=== PATIENT | male | born 1985 | race African-American/Black ===

== ENCOUNTER 2020-08-12 14:19 | Emergency (ER) | payer OTHER, SELFPAY ==
[~2020-08-12] VITALS: Ht 177.8 cm; Wt 81.8 kg
[2020-08-12 14:45] VITALS: BP 96/50
--- NOTE | 2020-08-12 15:31 | REP ---
INDICATION: fall w/ reported LOC. COMPARISON: None. TECHNIQUE: Helical scanning is acquired. 5 mm axial images were reformatted. Coronal MPR images were generated. FINDINGS: Bone window settings demonstrate an intact bony calvarium. There is no evidence of skull fracture or incidental bony calvarial lesion. The visualized paranasal sinuses appear clear. No intraorbital abnormality is seen. On soft tissue window setting images; the lateral, third, and fourth ventricles are normal in size and position. Tobar-white differentiation pattern is normal above and below the tentorium. There are is no evidence of intracranial hemorrhage. No mass, edema, infarction, or midline shift is seen. No extra-axial fluid collection is appreciated. IMPRESSION: Negative noncontrast head CT. <Electronically signed by Abraham Jane > 08/12/20 1521
--- NOTE | 2020-08-12 15:32 | REP ---
INDICATION: fall w/ reported LOC. COMPARISON: None. TECHNIQUE: Helical scanning is acquired and overlapping 2 mm high resolution axial images were generated and reviewed at bone and soft tissue window settings. Coronal and sagittal multiplanar re-formations images are generated. FINDINGS: There is no evidence of cervical spine element fracture. No skull base fracture is seen. Cervical vertebral body heights are preserved. Alignment is normal. Facet joints are normally aligned bilaterally at each cervical level on multiplanar re-formations images. There is no evidence of intraspinal or paraspinal hematoma. No extra vertebral abnormality is seen. IMPRESSION: Negative CT study of the cervical spine without contrast. No fracture seen. <Electronically signed by Abraham Jane > 08/12/20 1524
[2020-08-12] MEDS ORDERED: ACETAMINOPHEN 325 MG TAB PO ONE (15:45)
[2020-08-12] MEDS ORDERED: NAPR-837 PO (16:28)
--- NOTE | 2020-08-12 16:33 | REP ---
INDICATION: trauma COMPARISON: None. TECHNIQUE: AP, lateral, bilateral oblique, and coned-down views of the lumbar spine. FINDINGS: Alignment and lordosis maintained. Vertebral bodies are intact. Disc spaces are relatively normal/age-appropriate. No acute fracture/compression injury or subluxation. No obvious spondylolysis or spondylolisthesis.. IMPRESSION: Normal Lumbosacral Spine series. <Electronically signed by Lenin Sherwood > 08/12/20 0809
--- NOTE | 2020-08-12 16:33 | REP ---
INDICATION: trauma COMPARISON: None. TECHNIQUE: AP and lateral views of the sacrum and coccyx. FINDINGS: No obvious acute fracture or dislocation. Surrounding soft tissues appear normal. IMPRESSION: No obvious acute fracture or dislocation. <Electronically signed by Lenin Sherwood > 08/12/20 2371
== END 2020-08-12 16:49 | disposition home or self-care (01) ==
LOC: M ED 14:19
DX: S09.90XA Unspecified injury of head, initial encounter (principal); S16.1XXA Strain of muscle, fascia and tendon at neck level, initial encounter; S39.012A Strain of muscle, fascia and tendon of lower back, initial encounter; W18.2XXA Fall in (into) shower or empty bathtub, initial encounter; Y92.012 Bathroom of single-family (private) house as the place of occurrence of the external cause; F17.210 Nicotine dependence, cigarettes, uncomplicated

== ENCOUNTER 2020-09-16 11:39 | Emergency (ER) | payer OTHER ==
[~2020-09-16] VITALS: Ht 177.8 cm; Wt 85.0 kg
[~2020-09-16 11:39] MED LIST: NAPR-837 PO
[2020-09-16] MEDS ORDERED: CYCL-707 PO (15:29)
[2020-09-16] MEDS ORDERED: NAPR-837 PO (15:29)
[2020-09-16 16:11] VITALS: BP 130/76
== END 2020-09-16 16:12 | disposition home or self-care (01) ==
LOC: M ED 11:39
DX: S09.90XA Unspecified injury of head, initial encounter (principal); S29.012A Strain of muscle and tendon of back wall of thorax, initial encounter; S16.1XXA Strain of muscle, fascia and tendon at neck level, initial encounter; W01.0XXA Fall on same level from slipping, tripping and stumbling without subsequent striking against object, initial encounter; Y92.481 Parking lot as the place of occurrence of the external cause

== ENCOUNTER 2020-09-18 09:25 | Emergency (ER) | payer OTHER, SELFPAY ==
[~2020-09-18] VITALS: Ht 177.8 cm; Wt 81.8 kg
[~2020-09-18 09:25] MED LIST changes: +CYCL-707 PO
[2020-09-18] MEDS ORDERED: ACETAMINOPHEN 325 MG TAB PO ONE (11:15)
--- NOTE | 2020-09-18 11:43 | REP ---
INDICATION: fall. COMPARISON: None. TECHNIQUE: Helical scanning is acquired and overlapping 2 mm high resolution axial images were generated and reviewed at bone and soft tissue window settings. Coronal and sagittal multiplanar re-formations images are generated. FINDINGS: There is no evidence of cervical spine element fracture. No skull base fracture is seen. Cervical vertebral body heights are preserved. Alignment is normal. Facet joints are normally aligned bilaterally at each cervical level on multiplanar re-formations images. There is no evidence of intraspinal or paraspinal hematoma. No extra vertebral abnormality is seen. IMPRESSION: Negative CT study of the cervical spine without contrast. No fracture seen. <Electronically signed by Abraham Jane > 09/18/20 1502
--- NOTE | 2020-09-18 11:45 | REP ---
INDICATION: fall. COMPARISON: None. TECHNIQUE: Helical scanning is acquired and 4 mm axial images are generated. Coronal and sagittal MPR images are provided. FINDINGS: Lumbar vertebral body heights are preserved. Alignment is normal. There is no evidence of spondylolysis or spondylolisthesis. No fracture or collapse is seen. No transverse process or spinous process fracture is appreciated. The visualized pelvic structures and sacrum are intact. No paravertebral hematoma is appreciated. The adjacent soft tissues are unremarkable. There is mild disc space narrowing at L4-5. Mild diffuse disc bulging is seen at L4-5. IMPRESSION: No traumatic abnormality noted. Mild narrowing of the L4-5 disc with diffuse disc bulging. Otherwise negative <Electronically signed by Abraham Jane > 09/18/20 1489
[2020-09-18] MEDS ORDERED: methocarbamoL 750 MG TAB PO ONE (12:35)
[2020-09-18] MEDS ORDERED: METH-1165 PO (12:39)
[2020-09-18 12:53] VITALS: BP 116/73
== END 2020-09-18 12:55 | disposition home or self-care (01) ==
LOC: M ED 09:25
DX: S13.4XXA Sprain of ligaments of cervical spine, initial encounter (principal); S39.012A Strain of muscle, fascia and tendon of lower back, initial encounter; W01.0XXA Fall on same level from slipping, tripping and stumbling without subsequent striking against object, initial encounter; Y92.481 Parking lot as the place of occurrence of the external cause

== ENCOUNTER 2020-10-03 17:20 | Emergency (ER) | payer OTHER, SELFPAY ==
[~2020-10-03] VITALS: Ht 177.8 cm; Wt 87.2 kg
[~2020-10-03 17:20] MED LIST changes: +METH-1165 PO
--- NOTE | 2020-10-03 18:31 | REP ---
INDICATION: trauma. COMPARISON: None. TECHNIQUE: Four views of the left hand are provided. FINDINGS: Four views of the left hand demonstrate normal bones, joints, and soft tissues. No fracture or subluxation is seen. No opaque foreign body noted. IMPRESSION: Negative left hand series. <Electronically signed by Abraham Jane > 10/03/20 2245
[2020-10-03] MEDS ORDERED: NAPR-837 PO (20:39)
[2020-10-03 20:59] VITALS: BP 137/87
== END 2020-10-03 21:01 | disposition home or self-care (01) ==
LOC: M ED 17:20
DX: S33.5XXA Sprain of ligaments of lumbar spine, initial encounter (principal); S60.222A Contusion of left hand, initial encounter; S70.02XA Contusion of left hip, initial encounter; W01.0XXA Fall on same level from slipping, tripping and stumbling without subsequent striking against object, initial encounter; Y92.89 Other specified places as the place of occurrence of the external cause; Y99.0 Civilian activity done for income or pay

== ENCOUNTER 2020-12-07 05:46 | Emergency (ER) | payer OTHER ==
[~2020-12-07] VITALS: Ht 177.8 cm; Wt 81.1 kg
[2020-12-07] MEDS ORDERED: ACETAMINOPHEN 325 MG TAB PO ONE (07:05)
[2020-12-07] MEDS ORDERED: KETOROLAC TROMETHAMINE 10 MG TAB PO ONE (09:20)
[2020-12-07 09:38] VITALS: BP 157/91
[2021-02-17] MEDS ORDERED: CYCL10TA20 (06:55)
== END 2020-12-07 09:36 | disposition home or self-care (01) ==
LOC: M ED 05:46
DX: S06.0X0A Concussion without loss of consciousness, initial encounter (principal); W18.2XXA Fall in (into) shower or empty bathtub, initial encounter; Y92.012 Bathroom of single-family (private) house as the place of occurrence of the external cause; R07.89 Other chest pain; M54.6 Pain in thoracic spine; F17.210 Nicotine dependence, cigarettes, uncomplicated

== ENCOUNTER 2020-12-19 14:12 | Emergency (ER) | payer OTHER, SELFPAY ==
[~2020-12-19] VITALS: Ht 177.8 cm; Wt 81.8 kg
--- NOTE | 2020-12-19 15:09 | REP ---
INDICATION: twisted ankle COMPARISON: None. TECHNIQUE: Four views right ankle. FINDINGS: There is no evidence of acute fracture, dislocation, or intrinsic bone disease.Ankle mortise is anatomic. Multiple tiny metallic densities are seen in the soft tissues of the inferolateral midfoot. IMPRESSION: No fracture or dislocation. <Electronically signed by Mamadou Tobar > 12/19/20 [id number]
[2020-12-19] MEDS ORDERED: ACETAMINOPHEN 325 MG TAB PO ONE (16:40)
[2020-12-19 16:57] VITALS: BP 140/78
== END 2020-12-19 17:04 | disposition home or self-care (01) ==
LOC: M ED 14:12
DX: S93.401A Sprain of unspecified ligament of right ankle, initial encounter (principal); X50.9XXA Other and unspecified overexertion or strenuous movements or postures, initial encounter; Y92.89 Other specified places as the place of occurrence of the external cause; Y99.0 Civilian activity done for income or pay

== ENCOUNTER 2021-01-02 09:31 | Emergency (ER) | payer OTHER, SELFPAY ==
[~2021-01-02] VITALS: Ht 177.8 cm; Wt 85.6 kg
[2021-01-02 09:31] VITALS: BP 149/72
[2021-01-02] MEDS ORDERED: IBUP200C25 PO (09:51)
[2021-01-02] MEDS ORDERED: KETOROLAC TROMETHAMINE 10 MG TAB PO ONE (12:20)
--- NOTE | 2021-01-02 12:44 | REP ---
INDICATION: hit by bus door. COMPARISON: 1421. TECHNIQUE: Axial CT lumbar spine with sagittal and coronal reconstruction images. FINDINGS: There is no acute compression fracture. There is no dislocation, with normal lumbar lordosis. There is slight disc space narrowing at L4-5 and L5-S1. There is minor diffuse disc bulging at both levels. IMPRESSION: No acute fracture or dislocation. <Electronically signed by Mamadou Tobar > 01/02/21 [id number]
--- NOTE | 2021-01-02 12:50 | REP ---
INDICATION: hit by bus door. COMPARISON: 12/07/2020. TECHNIQUE: CT brain performed in the axial plane. Coronal reconstruction images are performed. FINDINGS: The ventricles are normal in size and position.. There is no midline shift or mass effect. Tobar-white differentiation is well maintained. There is no acute intracranial hemorrhage or extra-axial fluid collection. Bone window examination is unremarkable. The visualized mastoid air cells and paranasal sinuses are clear. IMPRESSION: Negative noncontrast CT brain. <Electronically signed by Mamadou Tobar > 01/02/21 1249
--- NOTE | 2021-01-02 12:51 | REP ---
INDICATION: hit by bus door. COMPARISON: 09/18/2020. TECHNIQUE: CT cervical spine performed in the axial plane, with sagittal and coronal reconstruction images performed. FINDINGS: There is no acute compression fracture or malalignment. There is no prevertebral soft tissue swelling. Disc spaces are well preserved. There is normal cervical lordosis. There is no abnormal density in the spinal canal. IMPRESSION: No evidence of acute fracture or dislocation. <Electronically signed by Mamadou Tobar > 01/02/21 8239
--- NOTE | 2021-01-02 13:30 | REP ---
INDICATION: fell left shoulder COMPARISON: None. TECHNIQUE: Three views left shoulder. FINDINGS: There is no evidence of acute fracture, dislocation, or intrinsic bone disease. IMPRESSION: No fracture or dislocation. <Electronically signed by Mamadou Tobar > 01/02/21 [id number]
== END 2021-01-02 14:41 | disposition home or self-care (01) ==
LOC: M ED 09:31
DX: S09.90XA Unspecified injury of head, initial encounter (principal); M54.2 Cervicalgia; M25.512 Pain in left shoulder; M54.5 Low back pain; W17.89XA Other fall from one level to another, initial encounter; Y92.9 Unspecified place or not applicable; Y93.9 Activity, unspecified; Y99.9 Unspecified external cause status

== ENCOUNTER 2021-01-18 10:06 | Emergency (ER) | payer OTHER ==
[~2021-01-18] VITALS: Ht 177.8 cm; Wt 84.6 kg
[~2021-01-18 10:06] MED LIST changes: +IBUP200C25 PO
[2021-01-18 10:07] VITALS: BP 128/76
[2021-01-18] MEDS ORDERED: KETOROLAC TROMETHAMINE 10 MG TAB PO ONE (11:40)
--- NOTE | 2021-01-18 12:11 | REPVR ---
PROCEDURE INFORMATION: Exam: CT Head Without Contrast Exam date and time: 01/18/2021 11:49 AM Age: 35 years old Clinical indication: Injury or trauma; Fall; Blunt trauma (contusions or hematomas); Consciousness not specified; Additional info: Fell TECHNIQUE: Imaging protocol: Computed tomography of the head without contrast. Radiation optimization: All CT scans at this facility use at least one of these dose optimization techniques: automated exposure control; mA and/or kV adjustment per patient size (includes targeted exams where dose is matched to clinical indication); or iterative reconstruction. COMPARISON: CT Head without contrast 01/02/2021 12:20 PM FINDINGS: Brain: There is no acute intracranial hemorrhage or mass effect. Mild diffuse volume loss is within the range of normal for patient age. There are small vessel ischemic changes within the periventricular and subcortical white matter, but the normal francis/white matter delineation is maintained. Cerebral ventricles: No ventriculomegaly. Paranasal sinuses: There is mild right maxillary sinus mucosal thickening. Mastoid air cells: Visualized mastoid air cells are well aerated. Bones/joints: Unremarkable. No acute fracture. Soft tissues: Unremarkable. IMPRESSION: No acute hemorrhage or calvarial fracture. Electronically signed by: Kylah Meyer On 01/18/2021 12:11:06 PM
--- NOTE | 2021-01-18 12:47 | REPVR ---
PROCEDURE INFORMATION: Exam: CT Cervical Spine Without Contrast Exam date and time: 01/18/2021 11:49 AM Age: 35 years old Clinical indication: Injury or trauma; Fall; Blunt trauma; Additional info: Fell TECHNIQUE: Imaging protocol: Computed tomography images of the cervical spine without contrast. Radiation optimization: All CT scans at this facility use at least one of these dose optimization techniques: automated exposure control; mA and/or kV adjustment per patient size (includes targeted exams where dose is matched to clinical indication); or iterative reconstruction. COMPARISON: CT Spine,cervical w/o contrast 01/02/2021 12:20 PM FINDINGS: Bones/joints: No acute fracture. Normal alignment. Discs/Spinal canal/Neural foramina: No significant disc protrusion. No severe spinal canal stenosis. No significant neural foraminal narrowing. Lungs: Lung apices are normal. Soft tissues: Unremarkable. IMPRESSION: No acute findings. Electronically signed by: Kylah Meyer On 01/18/2021 12:47:22 PM
--- NOTE | 2021-01-18 12:52 | REP ---
INDICATION: fell COMPARISON: Left hand 10/03/2020. TECHNIQUE: Four views left wrist. FINDINGS: There is no evidence of acute fracture, dislocation, or intrinsic bone disease. IMPRESSION: No fracture or dislocation. <Electronically signed by Mamadou Tobar > 01/18/21 [id number]
--- NOTE | 2021-01-18 12:53 | REP ---
INDICATION: fell COMPARISON: None. TECHNIQUE: Three views right shoulder. FINDINGS: There is no evidence of acute fracture, dislocation, or intrinsic bone disease. IMPRESSION: No fracture or dislocation. <Electronically signed by Mamadou Tobar > 01/18/21 [id number]
--- NOTE | 2021-01-18 12:58 | REP ---
INDICATION: fell. COMPARISON: 12/07/2020. TECHNIQUE: Four views right ribs. Frontal view chest. FINDINGS: There is no evidence of right rib fracture or bone lesion. No infiltrate or pneumothorax is seen. The heart and mediastinum are within normal limits. No pleural effusion or pneumothorax is seen. IMPRESSION: Negative right rib series. <Electronically signed by Mamadou Tobar > 01/18/21 1689
--- NOTE | 2021-01-18 16:41 | REP ---
INDICATION: fell. COMPARISON: None. TECHNIQUE: AP pelvis, AP and frogleg right hip. FINDINGS: There is no evidence of acute fracture, dislocation or intrinsic bone disease. The hip joints are unremarkable. IMPRESSION: No acute fracture or dislocation. <Electronically signed by Mamadou Tobar > 01/18/21 [id number]
== END 2021-01-18 13:56 | disposition home or self-care (01) ==
LOC: M ED 10:06
DX: S09.90XA Unspecified injury of head, initial encounter (principal); W18.39XA Other fall on same level, initial encounter; Y92.510 Bank as the place of occurrence of the external cause; R52 Pain, unspecified

== ENCOUNTER 2021-02-17 06:45 | Emergency (ER) | payer OTHER ==
[~2021-02-17] VITALS: Ht 177.8 cm; Wt 85.3 kg
[2021-02-17 06:45] VITALS: BP 124/58
[2021-02-17] MEDS ORDERED: LIDO5DIS41 (06:55)
[2021-02-17] MEDS ORDERED: CYCL10TA5 (06:55)
[2021-02-17] MEDS ORDERED: GABA-1171 (06:55)
== END 2021-02-17 08:08 | disposition home or self-care (01) ==
LOC: M ED 06:45
DX: G89.29 Other chronic pain (principal); M54.2 Cervicalgia; M54.6 Pain in thoracic spine; Z79.899 Other long term (current) drug therapy; Z79.891 Long term (current) use of opiate analgesic

== ENCOUNTER 2021-02-22 10:53 | Emergency (ER) | payer OTHER, SELFPAY ==
[~2021-02-22] VITALS: Ht 177.8 cm; Wt 83.0 kg
[~2021-02-22 10:53] MED LIST changes: +CYCL10TA5; +GABA-1171; +LIDO5DIS41
[2021-02-22] MEDS ORDERED: FLON1SPR NARES (13:26)
[2021-02-22] MEDS ORDERED: TYLE650T38 PO (13:26)
[2021-02-22 14:05] VITALS: BP 117/72
== END 2021-02-22 14:19 | disposition home or self-care (01) ==
LOC: M ED 10:53
DX: R51.9 Headache, unspecified (principal); J02.9 Acute pharyngitis, unspecified; R09.81 Nasal congestion; Z77.090 Contact with and (suspected) exposure to asbestos

== ENCOUNTER 2021-05-25 12:07 | Emergency (ER) | payer OTHER ==
[~2021-05-25] VITALS: Ht 177.8 cm; Wt 87.0 kg
[~2021-05-25 12:07] MED LIST changes: +CYCL10TA20; -CYCL10TA5; +FLON1SPR NARES; +TYLE650T38 PO
[2021-05-25 12:08] VITALS: BP 107/57
== END 2021-05-25 14:21 | disposition left against medical advice (07) ==
LOC: M ED 12:07
DX: Z53.21 Procedure and treatment not carried out due to patient leaving prior to being seen by health care provider (principal)